=== PATIENT | male | born 1965 | race Caucasian/White ===

== ENCOUNTER → 2020-10-04 09:04 | Outpatient (CLI) | payer OTHER, SELFPAY ==
[2020-10-04 12:36] LABS: COVID19 -Nasal RAPID Negative (Negative)
== END ==
PROVIDERS: PCP Family Medicine; Referring Provider Orthopaedic Surgery Orthopaedic Surgery of the Spine; Visit Provider Physician Assistant
DX: Z01.812 Encounter for preprocedural laboratory examination (principal); Z20.822 Contact with and (suspected) exposure to COVID-19
CPT/HCPCS: 87635

== ENCOUNTER 2020-10-06 12:48 | Day surgery (SDC) | payer OTHER, SELFPAY ==
[2020-10-02 09:38] VITALS: BMI 30.5
[2020-10-06] VITALS (11 sets, daily range): BP systolic 126–157; BP diastolic 76–103; PULSE 58–73; RESP 10–18; TEMP 36–36.3; O2SAT 92–98; BMI 30.5
--- NOTE | 2020-10-06 | DI.RAD.S_ITS ---
PROCEDURE: XR CERVICAL SPINE 2V OR 3V INDICATIONS: ACDF C6-7 TECHNIQUE: 2 view(s) of the cervical spine were acquired. The quality of visualization on the lateral view is limited. The frontal view appears normal for after anterior discectomy and cervical fusion with plate fusion and what appears to be an interbody disc spacer at the C6-C7 level. COMPARISON: None. FINDINGS: Bones: Immediate postoperative evaluation, Soft tissues: No prevertebral soft tissue swelling. IMPRESSION: Limited postoperative evaluation, as discussed. Subsequent follow-up imaging in the radiology department will provide better visualization of the C6-C7 anterior fusion plate and screws. These are very poorly visualized on the lateral projection at this time. Dictated by: Madi Hill M.D. on 10/07/2020 at 9:13 Approved by: Madi Hill M.D. on 10/07/2020 at 9:17
[2020-10-06] MEDS: LACTATED RINGERS 1,000 ML 42 ML IV (14:31)
--- NOTE | 2020-10-06 16:17 | PM.PREOP ---
Pre-operative Note COVID-19 COVID-19 status: Negative Result date/Date tested (Pos, Neg/Pending): 10/04/20 Interval Note History & Physical reviewed/Exam performed by Physician: Yes Changes to H&P: No
[2020-10-06] MEDS: CEFAZOLIN 1 GM VIAL 2 GM IV (16:31)
--- NOTE | 2020-10-06 17:17 | SUR.OPER ---
Supine, head on gel donut. Arms padded with gel pads, tucked at sides, towel roll under shoulders. Safety belt at thigh. Legs uncrossed.
[2020-10-06] MEDS: BUPIVACAINE 0.25% W/ EPI 30 ML VIAL INJ (18:19)
--- NOTE | 2020-10-06 18:24 | P.OP_ITS ---
Operative Date/Time/Diagnoses Date of procedure: 10/04/20 Time of procedure: 16:00 Pre-op diagnosis: 1. C6-7 spinal stenosis 2. C6-7 spondylosis with radiculopathy Post-op diagnosis: same Procedure & Clinicians Procedure: 1. C6-7 anterior cervical diskectomy and fusion 2. C6-7 anterior interbody cage placement 3. C6-7 anterior instrumentation with plate and screw placement in C5 and C6 vertebrae 4. Utilization of microsurgical technique and operating microscope Same procedure as scheduled: Yes Indications: Patient has been having chronic neck pain and worsening cervical radiculopathy. Patient failed multiple conservative management with worsening pain weakness and numbness in his left upper extremity. Patient has been having difficulty performing activity of daily living. After discussing risks benefits of treatment options, patient elected proceed with surgery. Surgeon: Maddison French Junior Administrative Assistant: Declan Mills Click Yes if Unassisted: No Anesthesia Type: General Operative Notes Closure Type: primary Specimen(s): none sent Prosthetic devices, grafts, tissues, transplants, or devices: Globus extend plate, PEEK cage Estimated Blood Loss (mL): 10 Blood products transfused: none Procedure in detail: Patient was seen in the preoperative area. Risks and benefits of the surgery was discussed with the patient. Informed consent was obtained from the patient and placed in the chart. Surgical site was marked. Patient was taken to the operative room. General anesthesia was administered. Prophylactic antibiotic was given to the patient less than 30 min before the incision was made. Patient was placed into a supine position on a radiolucent table. Patient's shoulders were taped down to allow proper C-arm imaging. Anterior cervical area was prepped and draped in a sterile fashion. Time-out was performed at this time. Using lateral C-arm imaging, the level between C6 and C7 was identified and marked on patient's neck. A oblique incision from midline towards medial border of sternocleidomastoid muscle was made. The platysma muscle was incised in line with skin incision. Metzenbaum scissor was used to develop the plane between the medial border of sternocleidomastoid d and the strap muscles medially. The c arotid sheath and its contents were identified and protected behind the hand- held retractor during the entire case. The plane between the carotid sheath and strap muscles was developed with Metzenbaum scissors. Dissection was made down to the level of the anterior cervical fascia. Longus colli muscle was incised on the anterior aspect of vertebral bodies bilaterally from C6-7. Spinal needle was placed into the C6-7 disc space and confirmed with lateral C-arm imaging. Using microsurgical technique and operative microscope, anterior cervical diskectomy was performed at C6-7 level. This was done by removing the disc material, removing the anterior and posterior osteophytes posterior longitudinal ligaments along with performing bilateral foraminotomies at the C6-7 levels. Patient was found to have severe foraminal stenosis. Patient's stenosis was fully decompressed after decompression was completed. After the diskectomy was completed, an anterior interbody cage was obtained. The cage was packed with globus via cell bone grafting material. One cage each along with the bone grafting material was then packed into the interbody space at C6-7 along with an anterior cervical plate. The cervical plate was stabilized to the C6-7 vertebrae using screws. After confirming placement of the hardware with AP and lateral C-arm imaging, the screws were locked into the plate using the locking mechanism and torque limiting screwdriver. After the hardware was placed and confirmed with AP and lateral C-arm imaging, the wound was irrigated with sterile normal saline. The platysma muscle and the subcutaneous tissue was closed with 2-0 Vicryl. The skin was closed with 4-0 Monocryl and Steri-Strips. Patient tolerated the procedure well. Patient was transferred recovery room in stable condition. There were no complications. Complications: none Post-operative Condition: stable Disposition: PACU Plan for aftercare: Discharge to home
--- NOTE | 2020-10-06 18:36 | SUR.PHASEI ---
1830 arouses very briefly to loud voice, able to follow command to deep breathe after several attempts. Unable to remain awake or focus eyes.
[2020-10-06] MEDS: OXYCODONE/ACETAMINOPHEN 5/325 TABLET 1 TAB PO (19:03)
[2020-10-06] MEDS: fentaNYL 100 MCG/2 ML INJ IV ×2 (19:05→19:16)
--- NOTE | 2020-10-06 19:09 | SUR.PHASEII ---
1905 was preparing to discharge patient when he reported pain 09/27. Moved back to phase I for pain management. present at bedside. Patient oriented
--- NOTE | 2020-10-06 19:12 | SUR.PHASEI ---
Patient has not had difficulty speaking in a normal tone since awakening. currently states that his voice is normal.
--- NOTE | 2020-10-06 19:15 | SUR.PHASEI ---
leaving to turn in Rx to a pharmacy since patient requires monitoring longer.. He remains awake, very quiet, VSS, resp unlabored. Tolerated PO intake well.
--- NOTE | 2020-10-06 20:02 | SUR.PHASEII ---
1944 Instructions reviewed with , all questions answered. Pt drowsy, oriented, stable and cooperative. Resp even and regular, skin warm and dry.
== END 2020-10-06 19:59 | disposition home or self-care (01) ==
PROVIDERS: PCP Family Medicine; Referring Provider Orthopaedic Surgery Orthopaedic Surgery of the Spine; Visit Provider Orthopaedic Surgery Orthopaedic Surgery of the Spine
PROC: (CPT 22551; principal; 2020-10-06 15:15)
DX: M48.02 Spinal stenosis, cervical region (principal); M47.22 Other spondylosis with radiculopathy, cervical region; I10 Essential (primary) hypertension
CPT/HCPCS: 22551; 22853; 72040; 76000; 82962; C1776; J0690; J1100; J2250; J2405; J2704; J3010